=== PATIENT | female | born 1955 | race Caucasian/White ===

== ENCOUNTER → 2024-02-14 16:48 | Outpatient (REF) | payer MEDICARE, OTHER, SELFPAY | LOC: PAVMRI 16:48 | PROVIDERS: ATTENDING PHYSICIAN Specialist; FAMILY PHYSICIAN Internal Medicine | DX: M25.551 Pain in right hip (principal) | CPT/HCPCS: 72148; 73721 ==

== ENCOUNTER 2024-03-17 06:13 | Day surgery (SDC) | payer MEDICARE, OTHER, SELFPAY ==
--- NOTE | 2024-03-04 12:24 | VNURNOTE ---
Patient is scheduled for an elective R LEILA on 03/17/24- she is a same day patient with Dr Olivera. Spoke with patient prior to surgery. Introduced role of [facility] Liaison. Patient reports she lives alone in a 2 story condo.
There are 16 steps to enter then everything is on that level.
She has a raised toilet seat, cane and rolling walker.
PCP is Dr Moise
Discussed [facility] joint protocol and post surgical plans.
Reviewed that she will have VN services initially and will then start outpatient PT.
Patient selects [facility] for her home care needs and will go to [facility] for outpatient PT. Scheduled for 03/20.
Patient is in agreement with plan and states that her daughter Kiesha will be home with her. Advised to bring RW with her day of surgery. Referral placed in [facility].
Plan: [facility] per [facility] joint protocol 03/17 then outpt PT on 03/20
[2024-03-07 13:01] VITALS: BMI 32.1
[2024-03-07 13:42] LABS: Hematocrit 38.9 % (37.0-47.0); Hemoglobin 12.8 g/dL (12.0-16.0); Mean Corp Hgb Conc. 32.9 g/dL (33.0-37.0); Mean Corpuscular Hgb 31.1 pg (27.0-31.0); Mean Corpuscular Volume 94.6 fL (81.0-99.0); Mean Platelet Volume 9.7 fL (7.4-10.4); Platelet Count 357 10^3/uL (130-400); Red Blood Cell Count 4.11 10^6/uL (4.20-5.40); Red Cell Dist. Width 12.9 % (11.5-14.5); White Blood Cell Count 7.7 10^3/uL (4.8-10.8)
[2024-03-07 14:07] LABS: ALT (SGPT) 20 U/L (0-35); AST (SGOT) 23 U/L (14-36); Albumin 4.4 g/dl (3.5-5.0); Alkaline Phosphatase 96 U/L (38-126); Blood Urea Nitrogen 17 mg/dl (7-17); Calcium 9.3 mg/dl (8.4-10.2); Carbon Dioxide 30 mmol/L (22-30); Chloride 99 mmol/L (98-107); Estimated Creatinine Clearance 77 ml/min; Glucose 119 mg/dl (70-99); Potassium 4.3 mmol/L (3.5-5.1); Sodium 137 mmol/L (135-145); Total Bilirubin 0.4 mg/dl (0.2-1.3); Total Protein 7.2 g/dl (6.3-8.2); eGFR > 60.00
[2024-03-07 14:31] LABS: Glycohemoglobin (HgbA1c) 5.8 % (4.0-5.6)
[2024-03-10 10:55] VITALS: BMI 32.1
[2024-03-17] VITALS (19 sets, daily range): BP systolic 77–154; BP diastolic 54–82
[2024-03-17] MEDS: TYLENOL 650 MG PO (07:25)
[2024-03-17] MEDS: CELEBREX 200 MG PO (07:25)
[2024-03-17] MEDS: NORMOSOL-R/PLASMALYTE-A 1000 IV (07:27)
--- NOTE | 2024-03-17 07:30 | W.DS.TRANS ---
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
-
Discharge Instructions:
Sleep Apnea Risk Low
Discharge Diagnosis/Procedures R LEILA 03/17/24
Diet No restrictions
Activity With Walker
Driving Restrictions No driving
Bathing Restrictions OK to Shower
Other Services PT
Instructions:
Stand-Alone Forms: Total Hip/Knee Replacement D/C
Changes to Home Medications: Yes
Discharge Medications:
DC Medications w/original date entered in [employer]
ascorbic acid (vitamin C) 1,000 mg tablet (Vitamin C) 1 g PO DAILY 03/04/24
atorvastatin 20 mg tablet 20 mg PO HS 03/04/24
cholecalciferol (vit D3) 1,000 unit-vitamin K2 (MK4) 100 mcg tablet 1 tab PO DAILY 03/04/24
coenzyme Q10 100 mg capsule (CoQ-10) 100 mg PO DAILY 03/04/24
cyanocobalamin (vitamin B-12) 1,000 mcg sublingual tablet 1,000 mcg sublingual DAILY 03/04/24
losartan 25 mg tablet 25 mg PO HS 03/04/24
metoprolol succinate 100 mg tablet,extended release 24 hr 100 mg PO HS 03/04/24
yfmiceznzoch-lnfhxrvm-xmoofz tablet 1 tab PO DAILY 03/04/24
celecoxib 200 mg capsule 200 mg PO DAILY anti-inflammatory #14 caps 03/07/24
dexamethasone 4 mg tablet 4 mg PO BID inflammation #6 tabs 03/07/24
famotidine 20 mg tablet 20 mg PO HS GI prophylaxis #30 tabs 03/07/24
gabapentin 300 mg capsule 300 mg PO HS sleep/pain #10 caps 03/07/24
mupirocin 2 % topical ointment 1 applic topical BID infection prevention #1 tube 03/07/24
ondansetron 4 mg disintegrating tablet 4 mg PO Q6H PRN n/v #20 tabs 03/07/24
tramadol 50 mg tablet 50 mg PO Q6H PRN 1 tab moderate pain, 2 if severe #30 tabs 03/07/24
acetaminophen 325 mg tablet (Tylenol) 650 mg (2 x 325 mg) PO QID #1 tab 03/17/24
aspirin 325 mg tablet 325 mg PO DAILY blood clot prevention #1 tab 03/17/24
docusate sodium 100 mg capsule (Colace) 100 mg PO BID stool softner #1 cap 03/17/24
magnesium 1 tab PO DAILY 03/17/24
magnesium hydroxide 400 mg/5 mL oral suspension (Milk of Magnesia) 30 ml PO HS PRN Constipation #1 mL 03/17/24
sennosides 8.6 mg tablet (Senokot) 17.2 mg (2 x 8.6 mg) PO BID laxative #2 tabs 03/17/24
Home Medication Changes
celecoxib 200 mg capsule 200 mg PO DAILY anti-inflammatory #14 caps 03/07/24
dexamethasone 4 mg tablet 4 mg PO BID inflammation #6 tabs 03/07/24
famotidine 20 mg tablet 20 mg PO HS GI prophylaxis #30 tabs 03/07/24
gabapentin 300 mg capsule 300 mg PO HS sleep/pain #10 caps 03/07/24
mupirocin 2 % topical ointment 1 applic topical BID infection prevention #1 tube 03/07/24
ondansetron 4 mg disintegrating tablet 4 mg PO Q6H PRN n/v #20 tabs 03/07/24
tramadol 50 mg tablet 50 mg PO Q6H PRN 1 tab moderate pain, 2 if severe #30 tabs 03/07/24
acetaminophen 325 mg tablet (Tylenol) 650 mg (2 x 325 mg) PO QID #1 tab 03/17/24
aspirin 325 mg tablet 325 mg PO DAILY blood clot prevention #1 tab 03/17/24
docusate sodium 100 mg capsule (Colace) 100 mg PO BID stool softner #1 cap 03/17/24
magnesium 1 tab PO DAILY 03/17/24
magnesium hydroxide 400 mg/5 mL oral suspension (Milk of Magnesia) 30 ml PO HS PRN Constipation #1 mL 03/17/24
sennosides 8.6 mg tablet (Senokot) 17.2 mg (2 x 8.6 mg) PO BID laxative #2 tabs 03/17/24
Pending Results: No
[2024-03-17] MEDS: TYLENOL 1000 MG PO (12:18)
[2024-03-17] MEDS: ANCEF 5 IV (12:59)
== END 2024-03-17 13:42 | disposition home or self-care (01) ==
LOC: SDS 06:13
PROVIDERS: ATTENDING PHYSICIAN Specialist; FAMILY PHYSICIAN Internal Medicine; OTHER PHYSICIAN Physician Assistant Medical; REFERRING PHYSICIAN Internal Medicine Cardiovascular Disease
DX: M16.11 Unilateral primary osteoarthritis, right hip (principal); E66.9 Obesity, unspecified; Z68.32 Body mass index [BMI] 32.0-32.9, adult; R00.0 Tachycardia, unspecified; M48.00 Spinal stenosis, site unspecified; M51.369 Other intervertebral disc degeneration, lumbar region without mention of lumbar back pain or lower extremity pain
CPT/HCPCS: 27130; 36415; 73502; 80053; 83036; 85027; 87070; 97162; C1713; C1776

== ENCOUNTER → 2024-07-07 07:56 | Outpatient (REF) | payer MEDICARE, OTHER, SELFPAY | LOC: HWRCS 07:56 | PROVIDERS: ATTENDING PHYSICIAN Internal Medicine Cardiovascular Disease; FAMILY PHYSICIAN Internal Medicine | DX: I45.10 Unspecified right bundle-branch block (principal); R00.0 Tachycardia, unspecified; Z86.79 Personal history of other diseases of the circulatory system | CPT/HCPCS: 93306 ==